=== PATIENT | male | born 1980 | race African-American/Black ===

== ENCOUNTER 2017-08-08 22:35 | Emergency (ER) | payer MEDICAID ==
[~2017-08-08] VITALS: Ht 172.7 cm; Wt 72.0 kg
[2017-08-08] MEDS ORDERED: ONDANSETRON HCL 4MG/2ML VIAL IV STA (22:48)
[2017-08-08] MEDS ORDERED: SODIUM CHLORIDE 0.9% 1,000 ML IV ONE (22:48)
[2017-08-08] MEDS ORDERED: KETOROLAC 30MG/ML VIAL IV STA (22:48)
[2017-08-08 23:14] LABS: BASOPHILS % 0.6 % (0.0-2.0); EOSINOPHILS % 0.3 % (0.0-5.0); HEMATOCRIT. 43.7 % (42.0-52.0); LYMPHOCYTES % 12.8 % (20.0-50.0); MEAN CORPUSCULAR HEMOGLOBIN 28.7 pg (28.0-32.0); MEAN CORPUSCULAR VOLUME 83.6 fL (80.0-94.0); MEAN PLATELET VOLUME 8.7 fl (7.4-10.4); MONOCYTES % 7.6 % (2.0-8.0); NEUTROPHILS % 78.7 % (40.0-76.0); PLATELET 208 x1000/uL (130-400); RED BLOOD CELL COUNT 5.23 mill/uL (4.7-6.1); RED CELL DISTRIBUTION WIDTH 13.4 % (11.6-14.6)
[2017-08-08 23:16] LABS: CHLORIDE 103 mEq/L (98-107)
[2017-08-08 23:17] LABS: PROTHROMBIN TIME 10.6 sec (9.4-11.6)
[2017-08-09 01:46] VITALS: BP 126/78
== END 2017-08-09 01:50 | disposition home or self-care (01) ==
LOC: ER 22:35
DX: N23 Unspecified renal colic (principal); R10.814 Left lower quadrant abdominal tenderness; R30.0 Dysuria
CPT/HCPCS: 36415; 74176; 80053; 85025; 85610; 96374; 96375; 99285; J1885; J2405; J7030; Z7610

== ENCOUNTER 2022-09-17 22:56 | Emergency (ER) | payer MEDICAID ==
[~2022-09-17] VITALS: Ht 175.3 cm; Wt 72.0 kg
[2022-09-17 23:09] VITALS: BP 139/95
[2022-09-18] MEDS ORDERED: ACETAMINOPHEN 325MG TABLET PO ONE (00:15)
[2022-09-18] MEDS ORDERED: IBUP-2028 PO (02:12)
[2022-09-18] MEDS ORDERED: T3 PO (02:12)
== END 2022-09-18 02:20 | disposition home or self-care (01) ==
LOC: ER 23:36
DX: M54.12 Radiculopathy, cervical region (principal); M79.602 Pain in left arm
CPT/HCPCS: 99284

== ENCOUNTER 2022-09-20 14:04 | Emergency (ER) | payer MEDICAID ==
[~2022-09-20] VITALS: Ht 175.3 cm; Wt 73.0 kg
[~2022-09-20 14:04] MED LIST: IBUP-2028 PO; T3 PO
[2022-09-20 14:28] VITALS: PULSE 90; O2SAT 100
[2022-09-20] MEDS ORDERED: LIDO700A15 TP (18:18)
[2022-09-20] MEDS ORDERED: BACL-141 MT (18:18)
[2022-09-20] MEDS ORDERED: NAPR-420 MT (18:18)
[2022-09-20] MEDS ORDERED: ACETAMINOPHEN 325MG TABLET PO ONE (18:30)
[2022-09-20] MEDS ORDERED: LIDOCAINE 5% PATCH TOP ONE (18:30)
[2022-09-20] MEDS ORDERED: GABAPENTIN 100MG CAPSULE PO ONE (18:30)
[2022-09-20 18:59] VITALS: BP 130/84; RESP 16; TEMP 98.6
== END 2022-09-20 19:23 | disposition home or self-care (01) ==
LOC: ER 14:22
DX: S29.012A Strain of muscle and tendon of back wall of thorax, initial encounter (principal); Z00.00 Encounter for general adult medical examination without abnormal findings; X58.XXXA Exposure to other specified factors, initial encounter; Y93.89 Activity, other specified; Y92.89 Other specified places as the place of occurrence of the external cause; Y99.8 Other external cause status
CPT/HCPCS: 99283